=== PATIENT | male | born 1965 | race Hispanic/Latino ===

== ENCOUNTER 2023-10-27 17:49 | Inpatient (IN) | payer OTHER ==
[~2023-10-27] VITALS: Ht 162.6 cm; Wt 54.5 kg
[2023-10-27 18:29] LABS: BASOPHILS # (AUTO) 0.01 K/uL (0.00-0.20); BASOPHILS % (AUTO) 0.1 % (0.0-5.0); EOSINOPHILS # (AUTO) 0.18 K/uL (0.00-0.70); EOSINOPHILS % (AUTO) 2.3 % (0.0-8.0); HEMATOCRIT 29.4 % (42-54); IMMATURE GRANULOCYTE ABSOLUTE 0.02 K/uL (0-1); LYMPHOCYTES # (AUTO) 0.8 K/uL (1.0-4.8); LYMPHOCYTES % (AUTO) 10.1 % (21.0-51.0); MEAN CORPUSCULAR HGB CONC 33.7 g/dL (32.0-36.0); MEAN CORPUSCULAR VOLUME 95.1 fL (79-99); MONOCYTES # (AUTO) 0.8 K/uL (0.1-1.0); MONOCYTES % (AUTO) 9.6 % (3.0-13.0); NEUTROPHILS # (AUTO) 6.1 K/uL (1.8-7.7); NEUTROPHILS % (AUTO) 77.6 % (40.0-77.0); PLATELET COUNT (AUTO) 135 K/uL (130-400); RED BLOOD CELL COUNT(AUTO) 3.09 MIL/uL (4.50-6.20); RED CELL DISTRIBUTION WIDTH 14.6 % (11.0-15.5); WHITE BLOOD COUNT (AUTO) 7.8 K/uL (4.8-10.8)
[2023-10-27 18:40] LABS: CREATININE 0.3 mg/dL (0.5-1.5); POTASSIUM 3.6 mmol/L (3.5-5.1)
[2023-10-27 18:41] LABS: INR 1.39 (0.85-1.15); PROTHROMBIN TIME 15.8 SEC (9.6-11.6)
[2023-10-27 18:44] LABS: ALBUMIN 1.9 g/dL (3.5-5.0); BILIRUBIN,TOTAL 3.1 mg/dL (0.2-1.0); MAGNESIUM 1.7 mg/dL (1.80-2.40); TOTAL PROTEIN, SERUM 5.2 g/dL (6.0-8.3)
[2023-10-27 19:03] LABS: THYROID STIMULATING HORMONE 8.15 uIU/mL (0.36-3.74)
[2023-10-27] MEDS: ALBUTEROL 0.083% 2.5 MG/3 ML INH IH ONE (22:00)
[2023-10-27] MEDS: CEFTRIAXONE 1G VIAL IVPB SCH (22:00)
[2023-10-27] MEDS ORDERED: METRONIDAZOLE 500MG/100ML BAG IV SCH (22:00)
[2023-10-27] MEDS: METOCLOPRAMIDE 10 MG/2 ML VIAL IVP ONE (22:31)
[2023-10-27] MEDS: CEFTRIAXONE 2GM VIAL IVPB ONE (22:31)
[2023-10-27] MEDS: METRONIDAZOLE 500MG/100ML BAG 100 ML IVPB SCH (22:35)
[2023-10-27 23:25] VITALS: BP 124/73; PULSE 84; RESP 20
[2023-10-28] VITALS (18 sets, daily range): BP systolic 98–119; BP diastolic 55–67; PULSE 66–82; RESP 16–20; O2SAT 96–97
[2023-10-28] MEDS ORDERED: PRAZ1CAP5 PO (03:52)
[2023-10-28] MEDS ORDERED: SERT-438 PO (03:52)
[2023-10-28] MEDS ORDERED: CHOL200012 PO (03:52)
[2023-10-28 04:24] LABS: BASOPHILS # (AUTO) 0.01 K/uL (0.00-0.20); BASOPHILS % (AUTO) 0.1 % (0.0-5.0); EOSINOPHILS # (AUTO) 0.29 K/uL (0.00-0.70); EOSINOPHILS % (AUTO) 3.6 % (0.0-8.0); HEMATOCRIT 27.1 % (42-54); IMMATURE GRANULOCYTE ABSOLUTE 0.03 K/uL (0-1); LYMPHOCYTES # (AUTO) 1.1 K/uL (1.0-4.8); LYMPHOCYTES % (AUTO) 13.5 % (21.0-51.0); MEAN CORPUSCULAR HEMOGLOBIN 32.1 pg (27.0-33.0); MEAN CORPUSCULAR HGB CONC 33.9 g/dL (32.0-36.0); MEAN CORPUSCULAR VOLUME 94.4 fL (79-99); MONOCYTES # (AUTO) 0.8 K/uL (0.1-1.0); MONOCYTES % (AUTO) 10.5 % (3.0-13.0); NEUTROPHILS # (AUTO) 5.8 K/uL (1.8-7.7); NEUTROPHILS % (AUTO) 71.9 % (40.0-77.0); PLATELET COUNT (AUTO) 162 K/uL (130-400); RED BLOOD CELL COUNT(AUTO) 2.87 MIL/uL (4.50-6.20); RED CELL DISTRIBUTION WIDTH 14.7 % (11.0-15.5)
[2023-10-28 04:41] LABS: ALBUMIN 1.8 g/dL (3.5-5.0); BILIRUBIN,TOTAL 2.9 mg/dL (0.2-1.0); CREATININE 0.3 mg/dL (0.5-1.5); MAGNESIUM 1.7 mg/dL (1.80-2.40); POTASSIUM 3.1 mmol/L (3.5-5.1); TOTAL PROTEIN, SERUM 5.1 g/dL (6.0-8.3)
[2023-10-28] MEDS: FAMOTIDINE 20MG VIAL IV SCH (12:04)
[2023-10-28] MEDS: MAGNESIUM 2GM PREMIX 50ML 50 ML IV PRN (12:04)
[2023-10-28] MEDS: KCL 20 MEQ ERTAB PO ONE ×3 (12:05→16:12)
[2023-10-28] MEDS: THIAMINE HCL 100 MG/ML 2ML VIAL IVP ONE (12:22)
[2023-10-28] MEDS ORDERED: LORAZEPAM 0.5 MG TABLET PO PRN (12:30)
[2023-10-28 13:33] LABS: BF LYMPHOCYTE 20 %; BF MESOTHELIAL 2 %; BF MONOCYTE 4 %; BF OTHER CELLS 11; BF TOTAL CELLS COUNTED 100
[2023-10-28 16:26] LABS: APPEARANCE BODY FLUID CLEAR (CLEAR); COLOR,BODY FLUID YELLOW (LT YELLOW); SPECIMENTYPE,BODY FLUID ASCITES
[2023-10-28 16:27] LABS: TOTAL VOLUME,BODY FLUID 3400 mL
[2023-10-28 17:46] LABS: BODY FLUID RBC 20 /cu. mm.; BODY FLUID WBC 110 /cu. mm.
[2023-10-28] MEDS ORDERED: NON-FORMULARY MEDICATION 1 EACH (Sertraline HCl 25 MG) PO SCH (21:00)
[2023-10-28] MEDS: SERTRALINE HCL 50 MG TABLET PO SCH (21:09)
[2023-10-28] MEDS: Prazosin HCl 1 MG PO SCH (21:12)
[2023-10-29] VITALS (8 sets, daily range): BP systolic 93–110; BP diastolic 57–67; PULSE 76–80; RESP 16–20; O2SAT 96
[2023-10-29 04:51] LABS: BASOPHILS # (AUTO) 0.03 K/uL (0.00-0.20); BASOPHILS % (AUTO) 0.4 % (0.0-5.0); EOSINOPHILS # (AUTO) 0.25 K/uL (0.00-0.70); EOSINOPHILS % (AUTO) 3.4 % (0.0-8.0); HEMATOCRIT 27.3 % (42-54); IMMATURE GRANULOCYTE ABSOLUTE 0.03 K/uL (0-1); LYMPHOCYTES # (AUTO) 0.8 K/uL (1.0-4.8); LYMPHOCYTES % (AUTO) 10.9 % (21.0-51.0); MEAN CORPUSCULAR HEMOGLOBIN 32.6 pg (27.0-33.0); MEAN CORPUSCULAR HGB CONC 34.4 g/dL (32.0-36.0); MEAN CORPUSCULAR VOLUME 94.8 fL (79-99); MONOCYTES # (AUTO) 0.7 K/uL (0.1-1.0); NEUTROPHILS # (AUTO) 5.5 K/uL (1.8-7.7); NEUTROPHILS % (AUTO) 74.9 % (40.0-77.0); PLATELET COUNT (AUTO) 132 K/uL (130-400); RED BLOOD CELL COUNT(AUTO) 2.88 MIL/uL (4.50-6.20); RED CELL DISTRIBUTION WIDTH 14.6 % (11.0-15.5); WHITE BLOOD COUNT (AUTO) 7.3 K/uL (4.8-10.8)
[2023-10-29 05:02] LABS: ALBUMIN 1.7 g/dL (3.5-5.0); BILIRUBIN,TOTAL 3.2 mg/dL (0.2-1.0); CREATININE 0.4 mg/dL (0.5-1.5); MAGNESIUM 1.8 mg/dL (1.80-2.40); POTASSIUM 3.7 mmol/L (3.5-5.1); TOTAL PROTEIN, SERUM 4.9 g/dL (6.0-8.3)
[2023-10-29] MEDS: CHOLECALCIFEROL 50 MCG PO SCH (09:00)
[2023-10-29] MEDS: THIAMINE HCL 100 MG/ML 2ML VIAL IVP SCH (09:00)
[2023-10-30 03:30] VITALS: BP 102/65; PULSE 74; RESP 16
[2023-10-30 07:29] VITALS: BP 98/67; PULSE 76; RESP 16
[2023-10-30 07:59] VITALS: O2SAT 96
[2023-10-30] MEDS ORDERED: CYAN-35 PO (08:20)
[2023-10-30] MEDS ORDERED: FOLI0.4T6 PO (08:20)
[2023-10-30 11:14] VITALS: BP 104/69; PULSE 85; RESP 18
[2023-10-30 15:59] VITALS: BP 109/69; PULSE 81; RESP 18
[2023-10-30 20:00] VITALS: BP 102/72; PULSE 77; RESP 16; O2SAT 96
[2023-10-31] VITALS (7 sets, daily range): BP systolic 103–118; BP diastolic 65–74; PULSE 74–87; RESP 16–20; O2SAT 97
[2023-11-01] VITALS (7 sets, daily range): BP systolic 114–131; BP diastolic 74–79; PULSE 75–84; RESP 16–18; O2SAT 96
[2023-11-01] MEDS: LOPERAMIDE HCL 2 MG CAP PO ONE (15:10)
[2023-11-01 19:18] LABS: HEMATOCRIT 28.6 % (42-54); MEAN CORPUSCULAR HEMOGLOBIN 32.6 pg (27.0-33.0); MEAN CORPUSCULAR HGB CONC 34.3 g/dL (32.0-36.0); PLATELET COUNT (AUTO) 143 K/uL (130-400); RED BLOOD CELL COUNT(AUTO) 3.01 MIL/uL (4.50-6.20); RED CELL DISTRIBUTION WIDTH 15.1 % (11.0-15.5); WHITE BLOOD COUNT (AUTO) 10.1 K/uL (4.8-10.8)
[2023-11-01 19:40] LABS: BASOPHILS # (AUTO) 0.03 K/uL (0.00-0.20); BASOPHILS % (AUTO) 0.3 % (0.0-5.0); EOSINOPHILS # (AUTO) 0.26 K/uL (0.00-0.70); EOSINOPHILS % (AUTO) 2.6 % (0.0-8.0); IMMATURE GRANULOCYTE ABSOLUTE 0.06 K/uL (0-1); LYMPHOCYTES % (AUTO) 10.5 % (21.0-51.0); MONOCYTES # (AUTO) 1.2 K/uL (0.1-1.0); MONOCYTES % (AUTO) 11.8 % (3.0-13.0); NEUTROPHILS # (AUTO) 7.4 K/uL (1.8-7.7); NEUTROPHILS % (AUTO) 74.2 % (40.0-77.0)
[2023-11-01 19:51] LABS: BILIRUBIN,TOTAL 3.1 mg/dL (0.2-1.0); CREATININE 0.3 mg/dL (0.5-1.5); MAGNESIUM 1.7 mg/dL (1.80-2.40); TOTAL PROTEIN, SERUM 5.4 g/dL (6.0-8.3)
[2023-11-01 20:00] LABS: POTASSIUM 2.7 mmol/L (3.5-5.1)
[2023-11-01] MEDS: POTASSIUM CHLORIDE 20MEQ/100ML 100 ML IV PRN (20:29)
[2023-11-02] VITALS (8 sets, daily range): BP systolic 101–123; BP diastolic 65–79; PULSE 66–79; RESP 16–18; O2SAT 97–98
[2023-11-02 05:00] LABS: BASOPHILS # (AUTO) 0.03 K/uL (0.00-0.20); BASOPHILS % (AUTO) 0.4 % (0.0-5.0); EOSINOPHILS # (AUTO) 0.32 K/uL (0.00-0.70); EOSINOPHILS % (AUTO) 3.9 % (0.0-8.0); HEMATOCRIT 25.8 % (42-54); IMMATURE GRANULOCYTE ABSOLUTE 0.04 K/uL (0-1); LYMPHOCYTES % (AUTO) 12.2 % (21.0-51.0); MEAN CORPUSCULAR HEMOGLOBIN 32.4 pg (27.0-33.0); MEAN CORPUSCULAR HGB CONC 34.5 g/dL (32.0-36.0); MEAN CORPUSCULAR VOLUME 93.8 fL (79-99); MONOCYTES % (AUTO) 11.8 % (3.0-13.0); NEUTROPHILS # (AUTO) 5.9 K/uL (1.8-7.7); NEUTROPHILS % (AUTO) 71.2 % (40.0-77.0); PLATELET COUNT (AUTO) 132 K/uL (130-400); RED BLOOD CELL COUNT(AUTO) 2.75 MIL/uL (4.50-6.20); RED CELL DISTRIBUTION WIDTH 15.1 % (11.0-15.5); WHITE BLOOD COUNT (AUTO) 8.3 K/uL (4.8-10.8)
[2023-11-02 05:38] LABS: ALBUMIN 1.7 g/dL (3.5-5.0); CREATININE 0.3 mg/dL (0.5-1.5); MAGNESIUM 1.6 mg/dL (1.80-2.40); POTASSIUM 3.3 mmol/L (3.5-5.1)
[2023-11-02] MEDS: ONDANSETRON 4MG INJ IV PRN (08:48)
[2023-11-02] MEDS: MAGNESIUM OXIDE 400 MG TABLET PO SCH (08:48)
[2023-11-03] VITALS (9 sets, daily range): BP systolic 113–127; BP diastolic 69–81; PULSE 66–81; RESP 17–19; O2SAT 98
[2023-11-03 07:28] LABS: MAGNESIUM 1.6 mg/dL (1.80-2.40); POTASSIUM 3.8 mmol/L (3.5-5.1)
[2023-11-04 04:27] VITALS: BP 114/74; PULSE 76; RESP 17
[2023-11-04 05:03] LABS: MAGNESIUM 1.8 mg/dL (1.80-2.40); POTASSIUM 3.5 mmol/L (3.5-5.1)
[2023-11-04 07:00] VITALS: BP 117/79; PULSE 78; RESP 16
[2023-11-04 07:49] VITALS: O2SAT 99
[2023-11-04 12:00] VITALS: BP 118/77; PULSE 77; RESP 16
[2023-11-04 16:00] VITALS: BP 126/78; PULSE 82; RESP 16
[2023-11-05] MEDS ORDERED: Vitamin B Complex/Vit C/Folic Acid PO SCH (09:00)
== END 2023-11-04 20:01 | DRG 432 ==
LOC: EDH 17:49 → EDHIP 21:56 → UNDOADMIN 21:56 → EDHIP 22:54 → 4BH 22:54
PROVIDERS: ADMIT Hospitalist; ATTEND Hospitalist
PROC: 0W9G3ZZ Drainage of Peritoneal Cavity, Percutaneous Approach (ICD-10-PCS; principal; 2023-10-28)
DX: K74.60 Unspecified cirrhosis of liver (principal); E43 Unspecified severe protein-calorie malnutrition; R18.8 Other ascites; E87.1 Hypo-osmolality and hyponatremia; K52.9 Noninfective gastroenteritis and colitis, unspecified; E03.9 Hypothyroidism, unspecified; D64.9 Anemia, unspecified; E86.0 Dehydration; F32.A Depression, unspecified; Z72.0 Tobacco use; Z68.20 Body mass index [BMI] 20.0-20.9, adult
CPT/HCPCS: 36415; 49083; 71045; 76700; 80053; 82140; 82270; 82306; 82607; 82746; 83735; 83880; 84132; 84443; 85025; 85610; 85730; 87046; 87071; 87177; 87205; 89051; 96374; C1729; G0378; J0696; J2405; J2765; J3411; J3475; J3480; J3490